=== PATIENT | male | born 1985 | race Caucasian/White ===

== ENCOUNTER 2019-02-28 13:49 | Emergency (ER) | payer SELFPAY ==
[~2019-02-28] VITALS: Ht 190.5 cm; Wt 86.6 kg
[2019-02-28] MEDS ORDERED: IBUPROFEN 600 MG TAB PO STA (14:39)
[2019-02-28] MEDS ORDERED: ACETAMINOPHEN 325 MG TAB PO ONE (14:45)
--- NOTE | 2019-02-28 15:12 | Diagnostic Imaging Report ---
Exam: Right hand radiographs-3 views History: Right hand injury. Comparison: None. Findings: No evidence of acute fracture, malalignment, or soft tissue abnormality. There is a well-circumscribed bony outgrowth at the distal/ radial aspect of the small finger proximal phalanx. No evidence of bony destructive change or periosteal reaction. Impression: No acute radiographic abnormality. Well-circumscribed bony growth at the distal /radial aspect of the small finger proximal phalanx. This likely represents a non-aggressive lesion such as osteochondroma. Sequela of prior trauma is also possible. Suggest correlation for point tenderness at this location. If the lesion is painful, suggest further evaluation with MRI. Signed by: Dr. Vignesh Cifuentes MD on 02/28/2019 3:06 PM
[2019-02-28 16:15] VITALS: BP 122/72
== END 2019-02-28 16:17 | disposition home or self-care (01) ==
LOC: FSED 13:49
DX: S63.656A Sprain of metacarpophalangeal joint of right little finger, initial encounter (principal); W22.8XXA Striking against or struck by other objects, initial encounter; Y92.89 Other specified places as the place of occurrence of the external cause
CPT/HCPCS: 99283